=== PATIENT | male | born 1985 | race Caucasian/White ===

== ENCOUNTER 2016-08-31 15:49 | Emergency (ER) | payer BC, OTHER ==
[~2016-08-31] VITALS: Ht 190.5 cm; Wt 99.8 kg
--- NOTE | ~2016-08-31 | EKG ---
[place] [address] [facility] [place] [address] ELECTROCARDIOGRAM REPORT Name: SHMUEL PAUL Room #: TREMAINE Sousa#: [id number] Admission: 08/31/16 Attend Phys: Discharge: 08/31/16 Date of : 83 Report #: [id number] THIS REPORT FOR: //name// [facility] ED Test Date: 2016-08-31 Test Time: 15:54:15 Pat Name: SHMUEL PAUL Department: Room: Gender: [employer]: : 1985 Requested By: Order Number: [id number] MD: Cresencio Mandujano Measurements Intervals [place] Rate: 94 P: 82 WI: 133 QRS: 18 QRSD: 85 T: 37 QT: 348 QTc: 436 Interpretive Statements Sinus rhythm Ventricular premature complex No previous ECG available for comparison Electronically Signed On 09-01-2016 8:27:08 [employer] by Cresencio Mandujano [email or web address] <ELECTRONICALLY SIGNED> By: Cresencio Mandujano MD, [facility] 09/01/16 0827 1554 1554 Cresencio Mandujano MD, FACC /EPI
[2016-08-31 16:45] LABS: ABSOLUTE NEUTROPHILS 5.5 thou/uL (1.4-8.2); BASOPHILS 0.4 % (0.0-2.0); EOSINOPHILS 1.1 % (0.0-3.0); HEMATOCRIT 42.8 % (42.0-52.0); LYMPHOCYTES 22.8 % (24.0-44.0); MCH 30.8 pg (26.0-34.0); MCHC 35.1 % (28.0-37.0); MCV 87.5 fL (80.0-100.0); MONOCYTES 8.5 % (1.0-8.0); PLATELET COUNT 173 thou/uL (150-400); POLYS 67.2 % (36.0-66.0); RBC 4.88 mil/uL (4.50-6.00); RDW 13.5 % (10.5-14.5); WBC 8.3 thou/uL (4.0-11.0)
[2016-08-31 16:48] LABS: MANUAL DIFF NO
[2016-08-31 16:52] LABS: ANION GAP 9 mmol/L (7-16); BUN 20 mg/dL (7-18); CALCIUM 8.6 mg/dL (8.5-10.1); CHLORIDE 106 mmol/L (98-107); CO2 28 mmol/L (21-32); CREATININE 1.1 mg/dL (0.6-1.3); GLUCOSE 98 mg/dL (70-99); POTASSIUM 3.9 mmol/L (3.5-5.1); SODIUM 143 mmol/L (136-145)
[2016-08-31 17:07] LABS: NT-PRO BRAIN NAT PEPTIDE 32 pg/mL (<300); TROPONIN-I < 0.04 ng/mL (<0.04-0.07)
[2016-08-31] MEDS ORDERED: NAPROSYN500 MG PO (17:28)
[2016-08-31 17:45] VITALS: BP 127/86
== END 2016-08-31 17:54 | disposition home or self-care (01) ==
LOC: ER 15:49
PROVIDERS: Nurse Practitioner
DX: M94.0 Chondrocostal junction syndrome [Tietze] (principal); J06.9 Acute upper respiratory infection, unspecified